=== PATIENT | female | born 1940 | race Caucasian/White ===

== ENCOUNTER 2018-01-19 16:04 | Emergency (ER) | payer MEDICARE, OTHER ==
--- NOTE | 2018-01-19 17:27 | ERPHSYRPT ---
- History of Present Illness Historian: patient, family Exam Limitations: no limitations Patient Subjective Stated Complaint: has had 3 weeks of abdominal pain.. seen by [facility] Monday for same. seen be Dr Castillo today [facility]. she states he sent her here to be seen. generalized abdominal pain. did use mag citrate and did have some return. Triage Nursing Assessment: alert and in distress. states abdominal pain x 3 weeks.. has had it investigated by 3 different doctors and has not had any answers. diffuse generalized abdominal pain.. increased pain to palpation all over abdomen. states had constipation which s was seen for at [facility] ER on Monday. Timing/Duration: week(s) (3), intermittent Activities at Onset: none Quality: cramping, sharpness Abdominal Pain Onset Location: generalized abdomen Pain Radiation: no radiation Severity of Pain-Max: moderate Severity of Pain-Current: moderate Associated Symptoms: loss of appetite, nausea, No neck pain, No shortness of breath, No vomiting, No weakness Previous symptoms: same symptoms as today <HERMINIO CHEN - Last Filed: 01/19/18 19:04> <CHOLO ZAMUDIO - Last Filed: 01/19/18 22:33> - History of Present Illness Time Seen by Provider: 01/19/18 17:15 Physician History: 78 y/o white female with 3 week h/o intermittent abdominal pain. pt states she has mentioned the pain to her pcp, internal medicine doctor and was seen at [facility] ED and dx with constipation. pain much worse today. no vomiting or diarrhea. (HERMINIO CHEN) Allergies/Adverse Reactions: No Known Drug Allergies Allergy (Verified 01/19/18 17:38) - Review of Systems Constitutional: No Symptoms Eyes: No Symptoms Ears, Nose, & Throat: No Symptoms Respiratory: No Symptoms Cardiac: No Symptoms, No Chest Pain, No Palpitations, No Syncope Abdominal/Gastrointestinal: Abdominal Pain, Nausea, Constipation, No Vomiting, No Diarrhea Genitourinary Symptoms: No Symptoms, No Dysuria, No Frequency, No Hematuria Musculoskeletal: No Symptoms Skin: No Symptoms Neurological: No Symptoms Psychological: No Symptoms Endocrine: No Symptoms Hematologic/Lymphatic: No Symptoms Immunological/Allergic: No Symptoms All Other Systems: Reviewed and Negative <HERMINIO CHEN - Last Filed: 01/19/18 19:04> - Past Medical History Pertinent Past Medical History: Yes Neurological History: No Pertinent History ENT History: No Pertinent History Cardiac History: No Pertinent History Respiratory History: No Pertinent History Endocrine Medical History: No Pertinent History Musculoskeletal History: No Pertinent History GI Medical History: No Pertinent History History: No Pertinent History Psycho-Social History: No Pertinent History Female Reproductive Disorders: No Pertinent History Other Medical History: "sodium problems - Past Surgical History Neuro Surgical History: No Pertinent History Cardiac: No Pertinent History Respiratory: No Pertinent History Gastrointestinal: No Pertinent History Genitourinary: No Pertinent History Musculoskeletal: No Pertinent History Female Surgical History: No Pertinent History - Social History Smoking Status: Current some day smoker Exposure to second hand smoke: No Drug Use: none Patient Lives Alone: No - Female History Hx Now: No <HERMINIO CHEN - Last Filed: 01/19/18 19:04> - Physical Exam General Appearance: moderate distress, alert, anxiety Eye Exam: PERRL/EOMI Ears, Nose, Throat Exam: normal ENT inspection, moist mucous membranes Neck Exam: normal inspection, non-tender, supple, full range of motion Respiratory Exam: normal breath sounds, lungs clear, airway intact, No chest tenderness, No respiratory distress, No accessory muscle use, No rhonchi, No wheezing, No stridor Cardiovascular Exam: regular rate/rhythm, normal heart sounds, normal peripheral pulses Gastrointestinal/Abdomen Exam: soft, tenderness (diffuse), guarding, rebound Pelvic Exam: not done Rectal Exam: not done Back Exam: normal inspection Extremity Exam: normal inspection Neurologic Exam: alert, oriented x 3, cooperative, roll cutter II-XII nml as tested Skin Exam: normal color, warm, dry Lymphatic Exam: No adenopathy SpO2: 97 Oxygen Delivery: Room Air <HERMINIO CHEN - Last Filed: 01/19/18 19:04> <CHOLO ZAMUDIO - Last Filed: 01/19/18 22:33> - Nursing Vital Signs Nursing Vital Signs: Initial Vital Signs Temperature 97.6 F 01/19/18 16:46 Pulse Rate 89 01/19/18 16:46 Respiratory Rate 18 01/19/18 16:46 Blood Pressure 161/86 01/19/18 16:46 O2 Sat by Pulse Oximetry 97 01/19/18 16:46 Pain Scale Pain Intensity 8 - CT Exams Abdomen/Pelvis CT Interpretation: Tele-radiologist Report (per Dr Loomis), Other (multiple hepatic lesions most consistent with metastatic disease) <CHOLO ZAMUDIO - Last Filed: 01/19/18 22:33> Ordered Tests: Active Orders 24 hr Category Date Time Status Clean Catch Urine Specimen STAT Care 01/19/18 17:32 Active ABDOMEN AND PELVIS W CONTRAST [CT] Stat Exams 01/19/18 18:46 Taken AMYLASE Stat Lab 01/19/18 17:47 Completed CBC W DIFF Stat Lab 01/19/18 17:47 Completed CMP Stat Lab 01/19/18 17:30 Completed LIPASE Stat Lab 01/19/18 17:47 Completed Lactic Acid Stat Lab 01/19/18 17:32 Completed UA W/RFX UR CULTURE Stat Lab 01/19/18 19:30 Completed Medication Summary Discontinued Medications Generic Name Dose Route Start Last Admin Trade Name Freq PRN Reason Stop Dose Admin Hydromorphone HCl 1 mg 01/19/18 17:32 01/19/18 17:45 Hydromorphone 1 Mg/Ml Ampule IV 01/19/18 17:33 1 mg STAT ONE Administration Hydromorphone HCl Confirm 01/19/18 17:40 Hydromorphone 1 Mg/Ml Ampule Administered 01/19/18 17:41 Dose 1 mg .ROUTE .STK-MED ONE Sodium Chloride 1,000 mls @ 999 mls/hr 01/19/18 17:32 01/19/18 17:46 Sodium Chloride 0.9% 1000 Ml IV 01/19/18 18:32 999 mls/hr .Q1H1M STA Administration Sodium Chloride Confirm 01/19/18 17:40 Sodium Chloride 0.9% 1000 Ml Administered 01/19/18 17:41 Dose 1,000 mls @ ud .ROUTE .STK-MED ONE Lorazepam 2 mg 01/19/18 21:35 01/19/18 22:07 Ativan 2 Mg/1 Ml Vial IV 01/19/18 21:36 2 mg STAT ONE Administration Lorazepam Confirm 01/19/18 22:07 Ativan 2 Mg/1 Ml Vial Administered 01/19/18 22:08 Dose 2 mg .ROUTE .STK-MED ONE Ondansetron HCl 4 mg 01/19/18 17:32 01/19/18 17:46 Zofran 4 Mg/2 Ml Vial IV 01/19/18 17:33 4 mg STAT ONE Administration Ondansetron HCl Confirm 01/19/18 17:39 Zofran 4 Mg/2 Ml Vial Administered 01/19/18 17:40 Dose 4 mg .ROUTE .STK-MED ONE Lab/Rad Data: Laboratory Result Diagrams 01/19/18 17:47 01/19/18 17:30 Laboratory Results 01/19/18 01/19/18 01/19/18 Range/Units 19:30 17:47 17:47 WBC 5.8 (4.0-10.5) K/mm3 RBC 3.99 L (4.1-5.4) M/mm3 Hgb 11.1 L (12.0-16.0) gm/dl Hct 33.9 L (35-47) % MCV 85.0 (78-100) fl MCH 27.8 (26-32) pg MCHC 32.7 (32-36) g/dl RDW 14.8 H (11.5-14.0) % Plt Count 324 (150-450) K/mm3 MPV 10.5 H (6-9.5) fl Gran % 65.5 (36.0-66.0) % Eos # (Auto) 0.17 (0-0.5) Absolute Lymphs (auto) 1.17 (1.0-4.6) Absolute Monos (auto) 0.64 (0.0-1.3) Lymphocytes % 20.2 L (24.0-44.0) % Monocytes % 11.1 (0.0-12.0) % Eosinophils % 2.9 (0.00-5.0) % Basophils % 0.3 (0.0-0.4) % Absolute Granulocytes 3.78 (1.4-6.9) Basophils # 0.02 (0-0.4) Sodium (137-145) mmol/L Potassium (3.5-5.1) mmol/L Chloride (98-107) mmol/L Carbon Dioxide (22-30) mmol/L Anion Gap (5-15) MEQ/L BUN (7-17) mg/dL Creatinine (0.52-1.04) mg/dL Estimated GFR ML/MIN Glucose (74-106) mg/dL Lactic Acid (0.4-2.0) Calcium (8.4-10.2) mg/dL Total Bilirubin (0.2-1.3) mg/dL AST (14-36) U/L ALT (0-35) U/L Alkaline Phosphatase (38-126) U/L Serum Total Protein (6.3-8.2) g/dL Albumin (3.5-5.0) g/dL Amylase 81 (30-110) U/L Lipase 146 (23-300) U/L Urine Color YELLOW (YELLOW) Urine Appearance SLIGHTLY CLOUDY (CLEAR) Urine pH 7.0 (5-6) Ur Specific [place] 1.014 (1.005-1.025) Urine Protein NEGATIVE (Negative) Urine Ketones TRACE (NEGATIVE) Urine Blood NEGATIVE (0-5) Saul/ul Urine Nitrite NEGATIVE (NEGATIVE) Urine Bilirubin NEGATIVE (NEGATIVE) Urine Urobilinogen NEGATIVE (0-1) mg/dL Ur Leukocyte Esterase TRACE (NEGATIVE) Urine WBC (Auto) 0-2 (0-5) /HPF Urine RBC (Auto) NONE (0-2) /HPF U Epithel Cells (Auto) RARE (FEW) /HPF Urine Culture Reflexed NO (NO) Urine Glucose NEGATIVE (NEGATIVE) mg/dL 01/19/18 01/19/18 Range/Units 17:32 17:30 WBC (4.0-10.5) K/mm3 RBC (4.1-5.4) M/mm3 Hgb (12.0-16.0) gm/dl Hct (35-47) % MCV (78-100) fl MCH (26-32) pg MCHC (32-36) g/dl RDW (11.5-14.0) % Plt Count (150-450) K/mm3 MPV (6-9.5) fl Gran % (36.0-66.0) % Eos # (Auto) (0-0.5) Absolute Lymphs (auto) (1.0-4.6) Absolute Monos (auto) (0.0-1.3) Lymphocytes % (24.0-44.0) % Monocytes % (0.0-12.0) % Eosinophils % (0.00-5.0) % Basophils % (0.0-0.4) % Absolute Granulocytes (1.4-6.9) Basophils # (0-0.4) Sodium 128 L (137-145) mmol/L Potassium 4.3 (3.5-5.1) mmol/L Chloride 92 L (98-107) mmol/L Carbon Dioxide 24 (22-30) mmol/L Anion Gap 16.5 H (5-15) MEQ/L BUN 42 H (7-17) mg/dL Creatinine 0.92 (0.52-1.04) mg/dL Estimated GFR > 60.0 ML/MIN Glucose 138 H (74-106) mg/dL Lactic Acid 0.9 (0.4-2.0) Calcium 9.8 (8.4-10.2) mg/dL Total Bilirubin 0.40 (0.2-1.3) mg/dL AST 65 H (14-36) U/L ALT 17 (0-35) U/L Alkaline Phosphatase 164 H (38-126) U/L Serum Total Protein 7.0 (6.3-8.2) g/dL Albumin 4.3 (3.5-5.0) g/dL Amylase (30-110) U/L Lipase (23-300) U/L Urine Color (YELLOW) Urine Appearance (CLEAR) Urine pH (5-6) Ur Specific [place] (1.005-1.025) Urine Protein (Negative) Urine Ketones (NEGATIVE) Urine Blood (0-5) Saul/ul Urine Nitrite (NEGATIVE) Urine Bilirubin (NEGATIVE) Urine Urobilinogen (0-1) mg/dL Ur Leukocyte Esterase (NEGATIVE) Urine WBC (Auto) (0-5) /HPF Urine RBC (Auto) (0-2) /HPF U Epithel Cells (Auto) (FEW) /HPF Urine Culture Reflexed (NO) Urine Glucose (NEGATIVE) mg/dL <HERMINIO CHEN - Last Filed: 01/19/18 19:04> - Progress Progress: unchanged <CHOLO ZAMUDIO - Last Filed: 01/19/18 22:33> - Progress Progress Note: 01/19/18 19:07 i transferred care to dr. zamudio. he accepts (HERMINIO CHEN) 01/19/18 19:29 Pt care discussed and care accepted from Dr Chen at 19:00. (CHOLO ZAMUDIO) <HERMINIO CHEN - Last Filed: 01/19/18 19:04> - Departure Time of Disposition: 22:32 Departure Disposition: Transfer (Transfer to [facility] per Dr Anglin.) Critical Care Time: No <CHOLO ZAMUDIO - Last Filed: 01/19/18 22:33> - Departure Clinical Impression: Abdominal pain, Liver mass Condition: Stable Referrals: DOCTOR,NO FAMILY [Primary Care Provider] -
[2018-01-19] MEDS ORDERED: Sodium Chloride 0.9% 1000 ML 1,000 ML IV STA (17:32)
[2018-01-19] MEDS ORDERED: Zofran 4 MG/2 ML VIAL IV ONE (17:32)
[2018-01-19] MEDS ORDERED: Hydromorphone 1 mg/ml Ampule IV ONE (17:32)
[2018-01-19] MEDS ORDERED: Zofran 4 MG/2 ML VIAL ONE (17:39)
[2018-01-19] MEDS ORDERED: Sodium Chloride 0.9% 1000 ML 1,000 ML ONE (17:40)
[2018-01-19] MEDS ORDERED: Hydromorphone 1 mg/ml Ampule ONE (17:40)
[2018-01-19 17:48] LABS: BASOPHIL % 0.3 % (0.0-0.4); Basophil (Absolute #) 0.02 (0-0.4); Eosinophil % 2.9 % (0.00-5.0); Eosinophil (Absolute #) 0.17 (0-0.5); Granulocyte Absolute (ANC) 3.78 (1.4-6.9); Granulocytes % 65.5 % (36.0-66.0); Hematocrit 33.9 % (35-47); Hemoglobin 11.1 gm/dl (12.0-16.0); Lymphocyte (Absolute #) 1.17 (1.0-4.6); Lymphocytes % 20.2 % (24.0-44.0); Mean Corpuscular Hemoglobin 27.8 pg (26-32); Mean Corpuscular Hgb Concent. 32.7 g/dl (32-36); Mean Platelet Volume 10.5 fl (6-9.5); Monocyte (Absolute #) 0.64 (0.0-1.3); Monocytes % 11.1 % (0.0-12.0); Platelet Count 324 K/mm3 (150-450); Red Blood Count 3.99 M/mm3 (4.1-5.4); Red Cell Distribution Width 14.8 % (11.5-14.0); White Blood Count 5.8 K/mm3 (4.0-10.5)
[2018-01-19 18:00] LABS: AMYLASE 81 U/L (30-110); LIPASE 146 U/L (23-300)
[2018-01-19 19:05] LABS: ALBUMIN 4.3 g/dL (3.5-5.0); ALKALINE PHOSPHATASE 164 U/L (38-126); ANION GAP 16.5 MEQ/L (5-15); BLOOD UREA NITROGEN 42 mg/dL (7-17); CHLORIDE 92 mmol/L (98-107); Calcium 9.8 mg/dL (8.4-10.2); Carbon Dioxide 24 mmol/L (22-30); Creatinine 1 0.92 mg/dL (0.52-1.04); Glucose 138 mg/dL (74-106); Potassium 4.3 mmol/L (3.5-5.1); SGOT/AST 65 U/L (14-36); SGPT/ALT 17 U/L (0-35); SODIUM 128 mmol/L (137-145)
[2018-01-19 19:48] LABS: Appearance SLIGHTLY CLOUDY (CLEAR); Bilirubin NEGATIVE (NEGATIVE); Blood NEGATIVE Ery/ul (0-5); Glucose NEGATIVE (NEGATIVE); Ketones TRACE (NEGATIVE); Leukocyte Esterase TRACE (NEGATIVE); Nitrite NEGATIVE (NEGATIVE); Protein,Urine Dip NEGATIVE (Negative); Specific Gravity 1.014 (1.005-1.025); Urobilinogen NEGATIVE mg/dL (0-1)
[2018-01-19 19:54] VITALS: O2SAT 97
[2018-01-19] MEDS ORDERED: Ativan 2 MG/1 ML VIAL IV ONE (21:35)
[2018-01-19] MEDS ORDERED: Ativan 2 MG/1 ML VIAL ONE (22:07)
[2018-01-19 22:50] VITALS: BP 180/77; PULSE 96
--- NOTE | 2018-01-20 07:38 | XRAY ---
Indication: Upper abdominal pain 3 weeks. Nausea and vomiting. Multiple contiguous axial images obtained through the abdomen and pelvis using 80 cc Isovue 370 contrast only. Comparison: None Lung bases demonstrates right base atelectasis/scarring. No infiltrate or effusion. Heart is borderline enlarged. Large hiatal hernia with partial intrathoracic stomach. Noncontrasted stomach and bowel loops appear nonobstructed. Mild/moderate diffuse colonic fecal debris throughout. Scattered descending and sigmoid diverticulosis. Previous reported appendectomy and hysterectomy. No free fluid/air. Liver demonstrates slight lobular margins as seen in cirrhosis. There are also several hepatic peripheral enhancing lesions, largest 7.2 x 7.1 cm in the right lobe worrisome for metastasis. Pancreatic duct is prominent up to 4 mm. Query 1 cm pancreatic uncinate process hypodense lesion. Indeterminate 1.5 x 2.8 cm left adrenal noncalcified mass. 1 cm right mid renal exophytic cyst. Remaining gallbladder, pancreas, spleen, right adrenal gland, kidneys, ureters, and bladder appear unremarkable. Heavy aortoiliac calcifications. No AAA or pathological retroperitoneal lymphadenopathy. Osseous structures intact with moderate/advanced multilevel degenerative spondylosis, moderate levoscoliosis, and remote-appearing superior T12 concave deformity. Moderate degenerative changes of both hips. Impression: 1. Multiple hepatic lesions worrisome for metastasis. Also suspect cirrhosis. 2. Indeterminant left adrenal gland mass. Noncontrast exam with Hounsfield measurements could be performed to determine adenoma. 3. Query pancreatic uncinate process 1 cm hypodensity with pancreatic duct prominence. 4. Fecal stasis without obstruction and colonic diverticulosis. 5. Large hiatal hernia and right renal cyst. 6. Multilevel degenerative spondylosis, scoliosis, and remote T12 endplate fracture. Comment: Preliminary interpretation was made by [facility]. No critical discrepancy. CTDI 20.37
== END 2018-01-19 23:43 ==
LOC: ED 16:04 → MERGE 16:04 → ED 23:43
DX: R10.9 Unspecified abdominal pain (principal); R16.0 Hepatomegaly, not elsewhere classified; F41.9 Anxiety disorder, unspecified
CPT/HCPCS: 36000; 36415; 74177; 80053; 81001; 82150; 83605; 83690; 85025; 96360; 96374; 96375; 99284; J1170; J2060; J2405